=== PATIENT | male | born 1965 | race Caucasian/White ===

== ENCOUNTER 2019-01-01 23:04 | Emergency (ER) | payer OTHER ==
[~2019-01-01] VITALS: Ht 180.3 cm; Wt 106.6 kg
[2019-01-01 23:30] VITALS: BP_SYST 131
[2019-01-01] MEDS ORDERED: NACL 0.9% 1,000 ML IV ONE (23:45)
[2019-01-01] MEDS ORDERED: LEVOFLOXACIN 500 MG/D5W 100 ML IV ONE (23:45)
[2019-01-01] MEDS ORDERED: ONDANSETRON HCL 4 MG/2 ML VIAL IVP ONE (23:45)
[2019-01-02 00:23] LABS: HEMOGLOBIN 15.6 g/dL (14.0-18.0); MEAN CORPUSCULAR HEMOGLOBIN 31 pg (27-31); MEAN CORPUSCULAR HGB CONC 35 % (32-36); MEAN CORPUSCULAR VOLUME 88 fL (79.0-98.0); RED BLOOD CELL COUNT(AUTO) 5.09 MIL/uL (4.2-6.2); RED CELL DISTRIBUTION WIDTH 13.1 % (9.0-15.0); WHITE BLOOD COUNT (AUTO) 13.3 K/uL (4.8-10.8)
[2019-01-02 00:24] LABS: BASOPHILS # (AUTO) 0.1 K/uL (0.0-0.2); BASOPHILS % (AUTO) 0.6 % (0.0-2.0); EOSINOPHILS # (AUTO) 0.1 K/uL (0.0-0.4); EOSINOPHILS % (AUTO) 0.8 % (0.0-4.0); LYMPHOCYTES # (AUTO) 1.9 K/uL (1.0-5.5); MONOCYTES # (AUTO) 0.7 K/uL (0.0-1.0); MONOCYTES % (AUTO) 5.1 % (1.7-9.3); NEUTROPHILS # (AUTO) 10.6 K/uL (1.8-7.7); NEUTROPHILS % (AUTO) 79.5 % (40.0-70.0); PLATELET COUNT (AUTO) 349 K/uL (130-430)
[2019-01-02 00:41] LABS: CREATININE 1.19 mg/dL (0.55-1.30); POTASSIUM 3.9 mmol/L (3.5-5.1)
[2019-01-02 00:46] LABS: TOTAL BILIRUBIN 0.4 mg/dL (0.0-1.0)
[2019-01-02 02:30] VITALS: BP_SYST 131
== END 2019-01-02 03:43 | disposition home or self-care (01) ==
LOC: SED 23:04
DX: A09 Infectious gastroenteritis and colitis, unspecified (principal); E11.9 Type 2 diabetes mellitus without complications; I10 Essential (primary) hypertension
CPT/HCPCS: 36415; 74176; 80053; 85025; 96375; 96365; 99284; J1956; J2405; J7030

== ENCOUNTER 2021-11-26 21:57 | Emergency (ER) | payer OTHER ==
[~2021-11-26] VITALS: Ht 182.9 cm; Wt 97.5 kg
[2021-11-26 22:20] VITALS: BP_SYST 152
[2021-11-26] MEDS ORDERED: ASPIRIN 81 MG TAB.CHEW PO ONE (22:30)
[2021-11-26] MEDS ORDERED: PROCHLORPERAZINE EDISYLATE 10 MG/2 ML VIAL IVP ONE (22:45)
[2021-11-26] MEDS ORDERED: NITROGLYCERIN 1 INCH (GM) OINT. TP ONE (22:45)
[2021-11-26] MEDS ORDERED: MORPHINE 4 MG INJ. 4 MG/ML VIAL IVP ONE (22:45)
[2021-11-26] MEDS ORDERED: ASPIRIN 325 MG TABLET PO ONE (22:45)
[2021-11-26 23:08] LABS: BASOPHILS % (AUTO) 0.6 % (0.0-2.0); EOSINOPHILS # (AUTO) 0.1 K/uL (0.0-0.4); EOSINOPHILS % (AUTO) 1.9 % (0.0-4.0); HEMATOCRIT 42.6 % (36-54); HEMOGLOBIN 14.9 g/dL (14.0-18.0); LYMPHOCYTES # (AUTO) 2.6 K/uL (1.0-5.5); LYMPHOCYTES % (AUTO) 41.3 % (20.5-51.5); MEAN CORPUSCULAR HEMOGLOBIN 31 pg (27-31); MEAN CORPUSCULAR HGB CONC 35 % (32-36); MEAN CORPUSCULAR VOLUME 89 fL (79.0-98.0); MONOCYTES # (AUTO) 0.5 K/uL (0.0-1.0); MONOCYTES % (AUTO) 7.4 % (1.7-9.3); NEUTROPHILS # (AUTO) 3.1 K/uL (1.8-7.7); NEUTROPHILS % (AUTO) 48.8 % (40.0-70.0); PLATELET COUNT (AUTO) 228 K/uL (130-430); WHITE BLOOD COUNT (AUTO) 6.4 K/uL (4.8-10.8)
[2021-11-26 23:21] LABS: CALCIUM 9.2 mg/dL (8.4-11.0); CREATININE 0.82 mg/dL (0.55-1.30); POTASSIUM 4.2 mmol/L (3.5-5.1)
[2021-11-26 23:30] LABS: ALBUMIN 3.7 g/dL (3.4-4.8); TOTAL BILIRUBIN 0.5 mg/dL (0.0-1.0)
[2021-11-27] MEDS ORDERED: ISOS30TA85 PO (04:20)
[2021-11-27] MEDS ORDERED: NITSL SL (04:20)
[2021-11-27] MEDS ORDERED: ASPI-1457 PO (04:20)
[2021-11-27 04:29] VITALS: BP_SYST 125
== END 2021-11-27 04:29 | disposition home or self-care (01) ==
LOC: SED 21:57
DX: R07.89 Other chest pain (principal); I10 Essential (primary) hypertension; E11.9 Type 2 diabetes mellitus without complications; Z79.899 Other long term (current) drug therapy
CPT/HCPCS: 36415; 71045; 80053; 83880; 84484; 85025; 93005 ×2; 96374; 96375; 99285; J0780; J2270